=== PATIENT | male | born 1955 | race Caucasian/White ===

== ENCOUNTER 2017-10-22 14:27 | Outpatient (CLI) | payer OTHER ==
--- NOTE | 2017-10-22 14:43 | RAD ---
CHEST 2 VIEWS: Date: 10/22/17 HISTORY: Cough. COMPARISON: 05/13/14. FINDINGS: Normal cardiac silhouette. Pulmonary vessels and hilum are normal. Costophrenic angles are clear. No masses or consolidation. No pneumothorax or osseous abnormalities. IMPRESSION: No acute cardiopulmonary process. POS: [facility]
== END 2017-10-22 14:28 | disposition home or self-care (01) ==
LOC: RAD-FRANK 14:27
PROVIDERS: ATTEND Nurse Practitioner Family
DX: R05 Cough (principal)
CPT/HCPCS: 71046

== ENCOUNTER 2018-03-15 10:36 | Outpatient (CLI) | payer OTHER ==
--- NOTE | 2018-03-15 11:37 | RAD ---
CHEST 2 VIEWS: Date: 03/15/18 HISTORY: Cough. COMPARISON: 10/22/17. FINDINGS: Normal cardiac silhouette. Pulmonary vessels and hilum are normal. Costophrenic angles are clear. No consolidation or mass. Mild hyperinflation. No pneumothorax or osseous abnormalities. IMPRESSION: No acute cardiopulmonary process. POS: [facility]
== END 2018-03-15 10:37 | disposition home or self-care (01) ==
LOC: RAD-FRANK 10:36
PROVIDERS: ATTEND Nurse Practitioner Family
DX: R05 Cough (principal)
CPT/HCPCS: 71046

== ENCOUNTER 2019-03-09 10:35 | Outpatient (CLI) | payer OTHER, MEDICARE ==
--- NOTE | 2019-03-09 10:59 | RAD ---
EXAM: 4 views of the right knee HISTORY: Knee pain COMPARISON: None FINDINGS: No knee effusion is seen. There is no evidence of acute fracture or dislocation. Mild to mo derate tricompartmental degenerative changes are seen. No soft tissue swelling is present. IMPRESSION: No evidence of acute osseous abnormality.
== END 2019-03-09 10:36 | disposition home or self-care (01) ==
LOC: RAD-FRANK 10:35
PROVIDERS: ATTEND Nurse Practitioner Family
DX: M25.562 Pain in left knee (principal)

== ENCOUNTER 2019-05-02 14:44 | Outpatient (CLI) | payer MEDICARE, OTHER ==
--- NOTE | 2019-05-02 15:04 | RAD ---
Lumbar spine 3 views: HISTORY: Fall with injury to back. FINDINGS: Lumbar vertebrae maintain alignment. There is minimal anterior wedging at L1 which does not appear a cute. The other lumbar vertebrae maintain normal height. The visualized thoracic vertebrae maintain normal height. There are anterior and lateral osteophytes, some of which are bridging osteophytes i n the lower thoracic and upper lumbar spine. Facet hypertrophy is prominent. Disk narrowing at L4-5 . IMPRESSION: Moderate degenerative changes of the lumbar spine. No acute abnormality identified. POS: [facility]
== END 2019-05-02 14:45 | disposition home or self-care (01) ==
LOC: RAD-FRANK 14:44
PROVIDERS: ATTEND Nurse Practitioner Family
DX: M54.5 Low back pain (principal); M47.816 Spondylosis without myelopathy or radiculopathy, lumbar region
CPT/HCPCS: 72100

== ENCOUNTER 2019-06-20 10:10 | Outpatient (CLI) | payer MEDICARE, OTHER ==
--- NOTE | 2019-06-20 11:33 | RAD ---
CHEST 2 VIEWS: HISTORY: Edema. COMPARISON: 03/15/2018. FINDINGS: Heart size is within normal limits. The lungs appear clear. Mild biapical pleural thickening. No c onfluent pneumonia, overt edema, or pleural effusions. There is some thoracic spine disk-osteophytos is. IMPRESSION: No acute intrathoracic disease. Stable from prior study. POS: [facility]
== END 2019-06-20 10:11 | disposition home or self-care (01) ==
LOC: RAD-FRANK 10:10
PROVIDERS: ATTEND Nurse Practitioner Family
DX: R60.9 Edema, unspecified (principal)
CPT/HCPCS: 71046

== ENCOUNTER 2022-05-14 08:08 | Outpatient (CLI) | payer MEDICARE, OTHER | END 2022-05-14 08:09 | disposition home or self-care (01) | LOC: RAD-FRANK 08:08 | PROVIDERS: ATTEND Nurse Practitioner Family | DX: M79.671 Pain in right foot (principal); M19.071 Primary osteoarthritis, right ankle and foot ==

== ENCOUNTER 2022-12-31 10:48 | Outpatient (CLI) | payer MEDICARE, OTHER | END 2022-12-31 10:49 | disposition home or self-care (01) | LOC: BICULT 10:48 | PROVIDERS: ATTEND Nurse Practitioner Family | DX: R19.03 Right lower quadrant abdominal swelling, mass and lump (principal); N28.89 Other specified disorders of kidney and ureter; K80.20 Calculus of gallbladder without cholecystitis without obstruction | CPT/HCPCS: 76700 ==

== ENCOUNTER 2023-01-14 08:39 | Outpatient (CLI) | payer MEDICARE, OTHER ==
[2023-01-14] MEDS ORDERED: Iopamidol 370 76% 100 ML VIAL ONE (10:10)
== END 2023-01-14 08:40 | disposition home or self-care (01) ==
LOC: BICCT 08:39
PROVIDERS: ATTEND Nurse Practitioner Family
DX: R22.2 Localized swelling, mass and lump, trunk (principal)
CPT/HCPCS: 74160; 82565; Q9967

== ENCOUNTER 2023-05-04 10:41 | Inpatient (IN) | payer MEDICARE, OTHER ==
[2023-05-04 11:52] LABS: #Basophils 0.03 10x3/uL (0.0-0.2); #Eosinphils Less than 0.03 10x3/uL (0.0-0.7); %Basophils 0.3 % (0.0-1.0); %Lymphocytes 6.6 % (21.0-51.0); %Monocytes 1.5 % (0.0-10.0); %Neutrophils 90.4 % (42.0-75.0); Hematocrit 39.5 % (42.0-52.0); Mean Corpuscular HGB CONC 32.9 g/dL (32.0-36.0); Mean Corpuscular Hemoglobin 32.1 pg (27.0-31.0); Mean Corpuscular Volume 97.5 fL (78.0-98.0); Mean Platelet Volume 11.2 fL (7.4-10.4); Platelet Count 233 10x3/uL (130-400); RBC Distribution Width 14.2 % (11.5-14.5); Red Blood Cell (RBC) Count 4.05 mill/uL (4.70-6.10)
[2023-05-04 11:56] LABS: Bacteria/HPF None Seen HPF (None Seen); Bilirubin Negative (Negative); Blood, Urine Negative (Negative); CAUTI Indications for Culture Spinal Cord Injury; Clarity Clear (Clear); Glucose, Urine (Dipstick) Greater than 1000 mg/dL (Negative); Ketone, Urine Negative (Negative); Leukocyte Negative Leu/uL (Negative); Nitrite Negative (Negative); Protein, Urine (Dipstick) Negative (Neg-Trace); RBC/HPF None Seen HPF (0-3); Specific Gravity, Urine 1.018 (1.002-1.036); Squamous Epithelial None Seen HPF (0-3); Urobilinogen Normal mg/dL (Less than 2); WBC/HPF 0-3 HPF (0-3); pH, Urine 5.5 (5.0-9.0)
[2023-05-04 11:57] LABS: Urine Culture Reflex No No
[2023-05-04 12:09] LABS: Anion Gap 16 mmol/L (10-20); BUN (Urea Nitrogen) 28 mg/dL (8.4-25.7); CK (CPK) 133 U/L (30-200); Calc. Creatinine Clearance 0 mL/min (70-130); Calcium 9.4 mg/dL (7.8-10.44); Carbon Dioxide 23 mmol/L (23-31); Chloride 101 mmol/L (98-107); Estimated GFR 57; Glucose 252 mg/dL (80-115); Potassium 4.7 mmol/L (3.5-5.1); Sodium 135 mmol/L (136-145)
[2023-05-04 12:10] LABS: INR-International Normal Ratio 1.1; Prothrombin Time 13.7 sec (12.0-14.7)
[2023-05-04 12:11] LABS: PTT 26.7 sec (22.9-36.1)
[2023-05-04] MEDS ORDERED: Ondansetron PF 4 MG/2 ML Vial IVP PRN (19:30)
[2023-05-04] MEDS ORDERED: HumaLOG 300 UNITS/3 ML VIAL SC PRN ×2 (20:22)
[2023-05-04] MEDS ORDERED: Dextrose 50% Abboject 50 ML SYRINGE SLOW IVP PRN (20:22)
[2023-05-04] MEDS ORDERED: Dextrose 5% in Water 1,000 ML IV PRN (20:22)
[2023-05-04] MEDS ORDERED: Glucagon 1 MG/ML KIT IM PRN (20:22)
[2023-05-04] MEDS: Famotidine 20 MG TAB PO SCH (20:44)
[2023-05-04 21:00] VITALS: BMI 33.6
[2023-05-05 04:22] LABS: #Basophils 0.04 10x3/uL (0.0-0.2); %Basophils 0.4 % (0.0-1.0); %Eosinophils 0.7 % (0.0-10.0); %Lymphocytes 13.2 % (21.0-51.0); %Monocytes 6.5 % (0.0-10.0); %Neutrophils 78.3 % (42.0-75.0); Hematocrit 33.6 % (42.0-52.0); Hemoglobin 11.3 g/dL (14.0-18.0); Mean Corpuscular HGB CONC 33.6 g/dL (32.0-36.0); Mean Corpuscular Hemoglobin 32.4 pg (27.0-31.0); Mean Corpuscular Volume 96.3 fL (78.0-98.0); Mean Platelet Volume 11.2 fL (7.4-10.4); Platelet Count 207 10x3/uL (130-400); RBC Distribution Width 14.2 % (11.5-14.5); Red Blood Cell (RBC) Count 3.49 mill/uL (4.70-6.10)
[2023-05-05 04:38] LABS: Anion Gap 13 mmol/L (10-20); BUN (Urea Nitrogen) 23 mg/dL (8.4-25.7); Calc. Creatinine Clearance 108 mL/min (70-130); Calcium 8.9 mg/dL (7.8-10.44); Carbon Dioxide 22 mmol/L (23-31); Chloride 108 mmol/L (98-107); Estimated GFR 88; Glucose 128 mg/dL (80-115); Potassium 3.7 mmol/L (3.5-5.1); Sodium 139 mmol/L (136-145)
[2023-05-05] MEDS ORDERED: Non-Formulary Item 1 EACH (Dulaglutide [Trulicity] 0.75 MG/0.5 ML Pen.Injctr) SCH (08:00)
[2023-05-05] MEDS ORDERED: Dulaglutide [Trulicity] 0.75 MG/0.5 ML Pen SC SCH (08:15)
[2023-05-05] MEDS ORDERED: Non-Formulary Item 1 EACH (Losartan Potassium [Losartan Potassium] 100 MG Tablet) PO SCH (09:00)
[2023-05-05] MEDS ORDERED: Non-Formulary Item 1 EACH (Insulin Detemir [Levemir Flexpen] 100 UNIT/ML Insuln.Pen) SQ SCH (09:00)
[2023-05-05] MEDS ORDERED: DICLOFENAC SODIUM 100 MG PO SCH (09:00)
[2023-05-05] MEDS ORDERED: DULoxetine 60 MG CAP PO SCH (09:00)
[2023-05-05] MEDS ORDERED: cloNIDine 0.2 MG TAB PO SCH (09:00)
[2023-05-05] MEDS: Losartan 25 MG TAB PO SCH (09:04)
[2023-05-05] MEDS: cloNIDine 0.2 MG TAB PO SCH (09:05)
[2023-05-05] MEDS: Gabapentin 300 MG CAP PO SCH (09:06)
[2023-05-05] MEDS: DULoxetine 60 MG CAP PO SCH (09:06)
[2023-05-05] MEDS: Insulin Glargine 30 UNITS/0.3 ML VIAL SC SCH (09:08)
[2023-05-05] MEDS: Diclofenac 25 MG DR.TAB PO SCH (09:12)
[2023-05-05] MEDS: Atorvastatin Calcium 20 MG TAB PO SCH (20:41)
[2023-05-05] MEDS: EMPAGLIFLOZIN PO SCH (20:45)
[2023-05-05] MEDS: METFORMIN HCL PO SCH (20:45)
[2023-05-05] MEDS ORDERED: Atorvastatin Calcium 20 MG TAB PO SCH (21:00)
[2023-05-06] MEDS: hydrALAZINE 20 MG/ML VIAL SLOW IVP PRN (11:47)
[2023-05-06] MEDS: Amlodipine 5 MG TAB PO SCH (17:30)
[2023-05-06] MEDS: hydrALAZINE 25 MG TAB PO SCH (21:07)
[2023-05-06] MEDS: cloNIDine 0.2 MG TAB PO SCH (21:07)
[2023-05-07 05:41] LABS: Anion Gap 14 mmol/L (10-20); BUN (Urea Nitrogen) 25 mg/dL (8.4-25.7); Calc. Creatinine Clearance 85 mL/min (70-130); Calcium 9.7 mg/dL (7.8-10.44); Carbon Dioxide 25 mmol/L (23-31); Chloride 103 mmol/L (98-107); Estimated GFR 65; Glucose 141 mg/dL (80-115); Potassium 3.9 mmol/L (3.5-5.1); Sodium 138 mmol/L (136-145)
[2023-05-07] MEDS: Amlodipine 5 MG TAB PO SCH ×2 (08:37→11:17)
[2023-05-07 08:51] VITALS: TEMP 98.4
[2023-05-07 10:51] VITALS: BP 165/84
== END 2023-05-07 15:35 | DRG 552 ==
LOC: ERS 10:41 → T4-A 19:13 → OBSVTOIN 05-05 16:03
PROVIDERS: ADMIT Hospitalist; ATTEND Hospitalist
DX: M51.16 Intervertebral disc disorders with radiculopathy, lumbar region (principal); I69.352 Hemiplegia and hemiparesis following cerebral infarction affecting left dominant side; Z88.5 Allergy status to narcotic agent; Z88.0 Allergy status to penicillin; Z88.8 Allergy status to other drugs, medicaments and biological substances; Z91.018 Allergy to other foods; Z79.899 Other long term (current) drug therapy; Z79.4 Long term (current) use of insulin; E11.22 Type 2 diabetes mellitus with diabetic chronic kidney disease; N18.9 Chronic kidney disease, unspecified; I12.9 Hypertensive chronic kidney disease with stage 1 through stage 4 chronic kidney disease, or unspecified chronic kidney disease
CPT/HCPCS: 36415; 36416; 72146; 72148; 72156; 80048; 81001; 82550; 85025; 85610; 85730; 86140; J0360; J1815